=== PATIENT | female | born 1950 | race Caucasian/White ===

== ENCOUNTER 2018-02-27 08:00 | Outpatient (CLI) | payer MEDICARE, OTHER, SELFPAY ==
[2018-02-27 08:34] LABS: Hemoglobin A1C 5.6 % (4.5-6.2)
[2018-02-27 11:23] LABS: ALT 177 U/L (12-78); AST 121 U/L (15-37); Alkaline Phosphatase 75 U/L (46-116); Anion Gap 11.2 mmol/L (3-11); BUN 9 mg/dL (7-18); CO2 26.8 mmol/L (21.0-32.0); CREATININE 0.62 mg/dL (0.55-1.02); Calcium 9.4 mg/dL (8.5-10.1); Chloride 97 mmol/L (98-107); Cholesterol 202 mg/dL (50-200); Glucose 119 mg/dL (70-100); HDL Cholesterol 60 mg/dL (40-60); LDL CHOLESTEROL 132 mg/dL (<100); Magnesium 1.7 mg/dL (1.8-2.4); Potassium 3.5 mmol/L (3.5-5.1); Sodium 135 mmol/L (136-145); Total Protein 7.1 g/dL (6.4-8.2); Triglyceride 87 mg/dL (30-150); Vitamin B12 449 pg/mL (193-986)
== END 2018-02-27 08:20 ==
PROVIDERS: PCP Nurse Practitioner Family; Visit Provider Nurse Practitioner Family
DX: R73.01 Impaired fasting glucose (principal); E78.5 Hyperlipidemia, unspecified; K21.9 Gastro-esophageal reflux disease without esophagitis; I10 Essential (primary) hypertension
CPT/HCPCS: 36415; 80053; 80061; 83721; 82607; 83036; 83735

== ENCOUNTER 2018-05-29 11:22 | Outpatient (CLI) | payer MEDICARE, OTHER, SELFPAY ==
--- NOTE | 2018-05-29 11:15 | DI.RAD_ITS ---
SYMPTOMS/DIAGNOSIS: PNEUMONIA, J18.9, SHORTNESS OF BREATH, COUGH X 3 WEEKS CHEST X-RAY, PA AND LATERAL: Comparison is 10/02/07. The heart is normal in size. The lungs are clear. The mediastinal structures and pleura appear intact. IMPRESSION: Normal chest.
[2018-05-29 12:09] LABS: Abs Immature Grans 0.02 k/cumm (0.0-0.09); Absolute Basophil Count 0.06 k/cumm (0.0-0.2); Absolute Eosinophil Count 0.36 k/cumm (0.0-0.7); Absolute Lymphocyte Count 1.86 k/cumm (1.2-3.4); Absolute Monocyte Count 0.44 k/cumm (0.11-0.7); Absolute Neutrophil Count 3.13 k/cumm (1.2-6.7); Eosinophils % 6.1; HCT 42.2 % (36.0-46.0); HGB 14.4 g/dL (12.0-15.5); Immature Grans % 0.3; Lymphocytes % 31.7; Mean Corp. HGB Concentration 34.1 g/dL (32.0-36.0); Mean Corpuscular Hemoglobin 30.6 pg (27.0-33.0); Mean Corpuscular Volume 89.6 fL (80-95); Mean Platelet Volume 11.8 fL (8.0-11.0); Monocytes % 7.5; Neutrophils % 53.4; Platelet Count 190 x1000/uL (130-400); RBC 4.71 m/cumm (4.00-5.20); RBC Distribution Width 13.4 % (11.7-14.6); White Blood Cell Count 5.87 k/cumm (4.4-10.8)
[2018-05-29 12:30] LABS: INR 1.1 (0.9-1.1); Prothrombin Time 10.6 sec (9.3-11.0)
[2018-05-29 13:15] LABS: Magnesium 1.7 mg/dL (1.8-2.4)
[2018-05-29 13:24] LABS: ALT 112 U/L (12-78); AST 87 U/L (15-37); Albumin 3.7 g/dL (3.4-5.0); Alkaline Phosphatase 99 U/L (46-116); Anion Gap 6.9 mmol/L (3-11); BUN 9 mg/dL (7-18); Bilirubin, Total 0.7 mg/dL (0.2-1.0); CO2 32.1 mmol/L (21.0-32.0); CREATININE 0.64 mg/dL (0.55-1.02); Calcium 9.3 mg/dL (8.5-10.1); Chloride 98 mmol/L (98-107); Glucose 134 mg/dL (70-100); Potassium 3.9 mmol/L (3.5-5.1); Sodium 137 mmol/L (136-145); Total Protein 7.5 g/dL (6.4-8.2)
== END 2018-05-29 11:42 ==
PROVIDERS: PCP Nurse Practitioner Family; Visit Provider Family Medicine
DX: J18.1 Lobar pneumonia, unspecified organism (principal); R94.5 Abnormal results of liver function studies; E83.42 Hypomagnesemia; R06.02 Shortness of breath; R05 Cough
CPT/HCPCS: 80053; 71046; 83735; 85025; 85610

== ENCOUNTER 2018-07-02 11:06 | Outpatient (CLI) | payer MEDICARE, OTHER, SELFPAY ==
[2018-07-02 12:27] LABS: Ferritin 138 ng/mL (8-388); TSH (W/Ref FT4) 1.39 uIU/mL (0.358-3.74)
[2018-07-02 13:30] LABS: Iron 121 ug/dL (50-175); Total Iron Binding Capacity 329 ug/dL (250-450); Transferrin Sat 37 % (15-50)
[2018-07-03 09:37] LABS: HBs Antibody, Qual Positive; HBs Antibody, Quant >1000.0 mIU/mL; Hepatitis B Core Antibody Negative (NEGAT); Hepatitis B surface Ag Negative (NEGAT); Hepatitis C Ab w Rflx HCV PCR Negative (NEGAT)
== END 2018-07-02 11:26 ==
PROVIDERS: PCP Nurse Practitioner Family; Visit Provider Family Medicine
DX: R94.5 Abnormal results of liver function studies (principal); R53.83 Other fatigue
CPT/HCPCS: 36415; 86704; 86706; 86803; 87340; 82728; 83540; 83550; 84443

== ENCOUNTER 2021-02-03 11:36 | Outpatient (CLI) | payer MEDICARE, OTHER, SELFPAY ==
[2021-02-03 13:35] LABS: ALT 34 U/L (14-59); AST 20 U/L (15-37); Anion Gap 11.3 mmol/L (3-11); BUN 13 mg/dL (7-18); CO2 27.7 mmol/L (21.0-32.0); CREATININE 0.7 mg/dL (0.55-1.02); Calcium 9.4 mg/dL (8.5-10.1); Calculated LDL 144 mg/dL (<100); Chloride 100 mmol/L (98-107); Cholesterol 230 mg/dL (<200); Glucose 106 mg/dL (74-106); HDL Cholesterol 64 mg/dL (40-60); Potassium 3.9 mmol/L (3.5-5.1); Sodium 139 mmol/L (136-145); Triglyceride 112 mg/dL (<150)
== END 2021-02-03 11:37 | disposition home or self-care (01) ==
LOC: LOS 11:44
PROVIDERS: PCP Nurse Practitioner Family; Visit Provider Family Medicine
DX: E78.5 Hyperlipidemia, unspecified (principal); E87.1 Hypo-osmolality and hyponatremia; K76.0 Fatty (change of) liver, not elsewhere classified
CPT/HCPCS: 36415; 80048; 80061; 84450; 84460

== ENCOUNTER 2023-12-12 13:01 | Outpatient (REF) | payer MEDICARE, OTHER, SELFPAY ==
[2023-12-12 21:41] LABS: Abs Immature Grans 0.02 10^3/uL (0.0-0.06); Absolute Basophil Count 0.05 10^3/uL (0.0-0.2); Absolute Eosinophil Count 0.18 10^3/uL (0.0-0.7); Absolute Lymphocyte Count 1.55 10^3/uL (1.2-3.4); Absolute Monocyte Count 0.49 10^3/uL (0.1-0.8); Absolute Neutrophil Count 3.27 10^3/uL (1.2-6.7); Basophils % 0.9 %; Eosinophils % 3.2 %; HCT 40.4 % (36.0-46.0); HGB 13.5 g/dL (11.2-15.7); Immature Grans % 0.4 %; Lymphocytes % 27.9 %; MCH 29.2 pg (27.0-33.0); MCHC 33.4 % (32.0-36.0); MCV 87 fL (80-95); MPV 11.9 fL (8.0-11.0); Monocytes % 8.8 %; Neutrophils % 58.8 %; Platelet Count 217 10^3/uL (130-400); RBC 4.63 10^6/uL (3.93-5.22); RDW 13.3 % (11.7-14.6); RDW-SD 42.3 fL; WBC 5.56 10^3/uL (4.4-10.8)
[2023-12-12 22:00] LABS: ALT 34 U/L (14-59); AST 24 U/L (15-37); Albumin 4.1 g/dL (3.4-5.0); Alkaline Phosphatase 76 U/L (46-116); Anion Gap 10.6 mmol/L (3-11); BUN 11 mg/dL (7-18); Bilirubin, Total 0.65 mg/dL (0.2-1.0); CO2 25.4 mmol/L (21.0-32.0); CREATININE 0.7 mg/dL (0.55-1.02); Calcium 9.6 mg/dL (8.5-10.1); Chloride 99 mmol/L (98-107); Estimated GFR 90.14 (mL/min/1.73m2); Glucose 104 mg/dL (74-106); NT-proBNP 140 pg/mL (<300); Potassium 3.8 mmol/L (3.5-5.1); Sodium 135 mmol/L (136-145); Total Protein 7.2 g/dL (6.4-8.2)
== END 2023-12-12 13:02 | disposition home or self-care (01) ==
LOC: LBN 13:01
PROVIDERS: PCP Nurse Practitioner Family; Visit Provider Physician Assistant
DX: R23.3 Spontaneous ecchymoses (principal); R60.9 Edema, unspecified; I50.9 Heart failure, unspecified; R21 Rash and other nonspecific skin eruption
CPT/HCPCS: 80053; 83880; 85025

== ENCOUNTER 2024-02-28 12:56 | Outpatient (CLI) | payer MEDICARE, OTHER, SELFPAY ==
[2024-02-28 13:09] LABS: Calculated LDL 133 mg/dL (<100); Cholesterol 228 mg/dL (<200); HDL Cholesterol 71 mg/dL (40-60); Triglyceride 120 mg/dL (<150)
== END 2024-02-28 12:57 | disposition home or self-care (01) ==
PROVIDERS: PCP Nurse Practitioner Family; Visit Provider Nurse Practitioner Family
DX: Z13.6 Encounter for screening for cardiovascular disorders (principal); F43.21 Adjustment disorder with depressed mood; I10 Essential (primary) hypertension; E78.5 Hyperlipidemia, unspecified; K21.9 Gastro-esophageal reflux disease without esophagitis
CPT/HCPCS: 36415; 80061

== ENCOUNTER 2024-03-25 19:28 | Outpatient (REF) | payer MEDICARE, OTHER, SELFPAY | END 2024-03-25 19:29 | disposition home or self-care (01) | LOC: LBN 19:28 | PROVIDERS: PCP Nurse Practitioner Family; Visit Provider Physician Assistant | DX: N76.0 Acute vaginitis (principal) | CPT/HCPCS: 87480; 87510; 87660 ==

== ENCOUNTER 2024-08-27 01:06 | Outpatient (CLI) | payer MEDICARE, OTHER, SELFPAY ==
--- NOTE | 2024-08-27 13:15 | DI.US_ITS ---
APPROVED REPORT EXAM: Comprehensive 2D, Doppler, and color-flow Echocardiogram Patient Location: Out-Patient Lens Marker: Nely Merritt RDCS (AE) Indications: Bilateral pedal edema Other Information Study Quality: Good Conclusion Normal left ventricular wall thickness and chamber size. Ejection fraction is 60%. Wall motion is n ormal Normal right ventricular size and function Mildly enlarged left atrium. Normal right atrial size Aortic valve is mildly sclerotic and trileaflet with mild regurgitation Normal mitral valve, mild regurgitation Normal tricuspid valve, mild regurgitation. Estimated right ventricular systolic pressure is 28 mmHg Wall motion Left Ventricle The left ventricle is normal size. The left ventricular systolic function is normal. The left ventric ular ejection fraction is within the normal range. There is normal left ventricular wall thickness. T here is normal LV segmental wall motion. There is no ventricular septal defect visualized. LVEF is 60 %. Right Ventricle The right ventricle is normal size. The right ventricular systolic function is normal. Atria Left atrium is mildly dilated. The right atrium size is normal. The interatrial septum is intact with no evidence for an atrial septal defect. Aortic Valve The aortic valve is mildly sclerotic Aortic valve is trileaflet. There is no aortic valvular stenosis . Mild aortic regurgitation. Mitral Valve The mitral valve is normal in structure. No evidence of mitral valve stenosis. Mild mitral regurgitat ion. Tricuspid Valve The tricuspid valve is normal in structure. There is no tricuspid valve stenosis. Mild tricuspid regu rgitation. The RVSP is 28.1_ mmHg. Pulmonic Valve The pulmonary valve is normal in structure. There is no pulmonic valvular stenosis. Trace pulmonic re gurgitation. Great Vessels The aortic root is normal in size. The ascending aorta is normal in size. Aortic arch is normal in ca liber. IVC is normal in size and collapses >50% with inspiration. Pericardium There is no pericardial effusion. 2D Dimensions IVSD d PLAX 1.03 cm F: 0.6-1.0 Ao Root d 3.17 cm F: 2.7 - 3.3 LVPW d PLAX 1.00 cm F: 0.6 - 1.0 Ao Asc Diam d 3.53 cm F: 2.3 - 3.1 LVID d PLAX 4.70 cm F: 3.8 - 5.2 LVDs 3.20 cm F: 2.2 - 3.5 LV EF Teichholz 59.7 % FS 31.72 % LV EDV (Teich) 100.2 mL LV ESV (Teich) 40.3 mL M-Mode TAPSE 2.60 cm (M/F) >1.7 Auto EF LV EDV A4C 91.6 mL LV EDV A2C 98.4 mL LV EDV BP 95.5 mL LV ESV A4C 37.7 mL LV ESV A2C 41.6 mL LV ESV BP 39.3 mL LVEF(%) A4C 58.8 % LVEF(%) A2C 57.7 % LVEF(%) BP 58.9 % LV SV A4C 53.9 ml LV SV A2C 56.8 ml LV SV BP 56.2 ml LV CO A4C 3.4 L/min LV CO A2C 3.4 L/min LV CO BP 3.4 L/min HR A4C 63.50 BPM HR A2C 59.41 BPM LV EDV Index (BP) LA Volume LA Length A4C 5.6 cm LA Length A2C 5.3 cm LA Area A4C s 24.40 cm2 LA Area A2C s 18.98 cm2 LA Vol A4C A-L 89.43 mL LA Vol A2C A-L 57.27 mL LA Vol Biplane A-L 73.6 mL LA Vol/BSA A4C A-L LA Vol/BSA A2C A-L LA Vol/BSA BP A-L 41.4 mL/m2 LA Vol A4C MOD 84.6 mL LA Vol A2C MOD 52.5 mL LA Vol BP MOD 68.4 mL LV Diastology MV E' medial 0.052 (>0.07 m/s) MV E Vmax 0.74 (0.4-1.3 m/s) MV E/E' MED 14.09 (<14) MV A Vmax 0.75 (0.4-1.3 m/s) MV E' lateral 0.071 (>0.1 m/s) E/A Ratio 1.0 MV E/E' LAT 10.30 (<14) MV E' Average 0.062 m/s MV E/E'(average) 11.90 Aortic Valve AoV Vmax 1.55 m/s LVOT Vmax 1.06 m/s AoV Peak Grad 37.2 mmHg LVOT Peak Grad 4.5 mmHg AoV Area (Vmax) 2.09 cm2 LVOT VTI 0.280 m AoV VTI 0.405 m LVOT Mean Grad 2.4 mmHg AoV Mean Nithin. 1.09 m/s LVOT SV 85.83 mL AoV Mean Grad 5.4 mmHg LVOT Diam s 1.95 cm AoV Area (VTI) 2.12 cm2 AV Regurg Peak Gr. 9.66 mmHg Velocity Ratio 0.68 AR Decel Vance 2.0m/sec2 AR DT 2060 msec AR PHT 597 msec AR Vmax 4.02 m/s Mitral Valve MV DT 195 (160-240 msec) MV Vmax TIPS 0.74 m/s MV Mean Grad 1.2 (<2mmHg) MV VTI 0.314 m Pulmonary Valve PV Vmax 0.75 (0.5-1.5 m/s) RVOT Vmax 0.54 m/s PV Peak Grad 2.2 mmHg RVOT Peak Gr. 1.2 mmHg PV Mean Nithin 0.56 m/s RVOT VTI 0.137 m PV Mean Grad 1.4 mmHg RVOT Mean Gr. 0.7 mmHg Tricuspid Valve RA Pressure 3.00 mmHg TR Vmax 2.50 m/s TV S' 0.18 m/s TR Peak Grad 25.0 mmHg RVSP (TR) 28.1 mmHg
== END 2024-08-27 01:26 ==
LOC: DI 01:07
PROVIDERS: PCP Nurse Practitioner Family; Visit Provider Internal Medicine Cardiovascular Disease
DX: R60.0 Localized edema (principal); I35.0 Nonrheumatic aortic (valve) stenosis
CPT/HCPCS: 93306

== ENCOUNTER 2024-10-22 02:46 | Outpatient (CLI) | payer MEDICARE, OTHER, SELFPAY ==
--- NOTE | 2024-10-22 08:00 | DI.MRI_ITS ---
Exam(s) MR LOWER JOINT LT WO EXAM: MR LOWER JOINT LT WO CLINICAL HISTORY: Failing PT/worsening pain, LT KNEE INJURY S89.92XA. TECHNIQUE: Multiplanar multisequence MRI was performed. COMPARISON: CR XR KNEE COMPLETE MIN 4V LT from 08/15/2024 CR XR KNEE 1 OR 2V BILAT-M2 from 08/22/2024 FINDINGS: BONES: There is marrow edema seen in the medial tibial plateau without evidence of a fracture. JOINTS: There is near complete loss of the articular cartilage overlying the medial femoral condyle. There is marked thinning of the articular cartilage overlying the medial tibial plateau. There is also thinning of the articular cartilage overlying the patella. There is a moderate-sized joint effusion. There is a multi cystic collection seen inferior to the patella within the infrapatellar fat pad. TENDONS: Extensor mechanism: Unremarkable. Medial retinaculum: Unremarkable. Lateral retinaculum: Unremarkable. Popliteus: Unremarkable. MUSCLES: Unremarkable. MENISCI: There is signal seen along the free edge of the posterior horn of the medial meniscus suspicious for tear versus degeneration. The lateral meniscus is unremarkable. SOFT TISSUES: Unremarkable. LIGAMENTS: Anterior Cruciate: Unremarkable. Posterior Cruciate: Unremarkable. Medial Collateral:Unremarkable. Lateral Collateral: Unremarkable. OTHER: IMPRESSION: 1. Abnormal signal seen along the free edge of the posterior of the medial meniscus which may represent a tear versus degeneration. 2. There is no evidence of a cruciate or collateral ligament tear. 3. Marked arthrosis of the knee, particularly the medial femoral tibial joint. 4. Multi cystic collection inferior to the knee in the infrapatellar fat. Differential considerations include synovial cysts, bursitis or fat pad cysts. 5. No evidence of a fracture. DATA REPOSITORY:
== END 2024-10-22 03:06 ==
PROVIDERS: PCP Nurse Practitioner Family; Visit Provider Nurse Practitioner Family
DX: S89.92XA Unspecified injury of left lower leg, initial encounter (principal); X58.XXXA Exposure to other specified factors, initial encounter; M17.12 Unilateral primary osteoarthritis, left knee
CPT/HCPCS: 73721

== ENCOUNTER → 2024-12-19 13:06 | Outpatient (BNVA) | payer MEDICARE, OTHER, SELFPAY | PROVIDERS: PCP Nurse Practitioner Family; Referring Provider Physical Therapist; Visit Provider Student in an Organized Health Care Education/Training Program | DX: S83.242A Other tear of medial meniscus, current injury, left knee, initial encounter (principal); M17.12 Unilateral primary osteoarthritis, left knee; X58.XXXA Exposure to other specified factors, initial encounter | CPT/HCPCS: 99203 ==

== ENCOUNTER 2025-01-08 03:24 | Outpatient (CLI) | payer MEDICARE, OTHER, SELFPAY ==
--- NOTE | 2025-01-08 05:45 | DI.CT_ITS ---
Exam(s) CT THORACIC SPINE WO EXAM: CT THORACIC SPINE WO CLINICAL HISTORY: Compression fracture,S22.000A. TECHNIQUE: Imaging Protocol: Axial computed tomography images with coronal and sagittal reformatted images were created and reviewed. CONTRAST MATERIAL: Noncontrast COMPARISON: CR XR CHEST 2V PA LATERAL from 05/29/2018 CR XR T SPINE AP/LAT/SWIMMERS from 01/02/2025 FINDINGS: Bones: There is slight compression of the superior endplate of T7. There is slight compression of the inferior endplate of T9. There is mild moderate compression of the T11 vertebral body. The T12 vertebral body shows mild compression of the superior endplate. Acute fracture lines are visible at T7 and T9. There are degenerative changes of the endplates at T10-11 and T11-12, as well as T12-L1. No definite acute fracture lines are seen at these levels. No posterior element fractures. No retropulsion at any level.. The alignment of the spine is normal including the cervicothoracic junction. Soft tissues: No acute pulmonary findings. The thoracic aorta shows calcification. No large disk herniations are identified. IMPRESSION: Mild compression fractures of T7 and T9 with acute fracture lines visible. Moderate compression fracture of T11 and mild compression fracture of T12. These fractures and do not show definite acute fracture lines and of indeterminate age. They new since 2019. RADIATION DOSE DELIVERED: 845.6mGy.cm Total DLP DATA REPOSITORY: All CT scans at this facility are submitted to the National Radiology Data Registry (NRDR) Dose Index Registry (DIR) with the [employer] (A[employer]). RADIATION OPTIMIZATION: All CT scans at this facility use at least one of these dose optimization techniques: automated exposure control; mA and/or kV adjustment per patient size (includes targeted exams where dose is matched to clinical indication); or iterative reconstruction.
== END 2025-01-08 03:44 ==
PROVIDERS: PCP Nurse Practitioner Family; Visit Provider Nurse Practitioner Family
DX: S22.060A Wedge compression fracture of T7-T8 vertebra, initial encounter for closed fracture (principal); X58.XXXA Exposure to other specified factors, initial encounter
CPT/HCPCS: 72128

== ENCOUNTER → 2025-02-06 04:00 | Outpatient (CLI) | payer MEDICARE, OTHER, SELFPAY ==
--- NOTE | 2025-02-06 08:15 | DI.DEXA_ITS ---
Exam(s) XR DEXA BONE DENSITY W/WO JONNA EXAM: XR DEXA BONE DENSITY W/WO JONNA CLINICAL HISTORY: Bone density, menopausal disorder, N95.9 TECHNIQUE: Routine DEXA evaluation of the lumbar spine, hip, or forearm. COMPARISON: Prior DEXA scan of September 2008 FINDINGS: Performed on a [employer] unit. Lateral image: No compression fracture evident. Lumbar Spine total T-score: -0.7 which is within normal range. The reading in 2008 was -0.5 which was also normal range Hip total T-score:-1.3 which is osteopenia range. Prior reading in 2008 was - 0.2 which was normal range at that time. Independent reading at the level of the femoral neck yields T-score of -2.1 which is osteopenia range. The prior 2008 reading at this level is not available Forearm total T-score: -2.8 which is osteoporosis range. IMPRESSION: Bone mineral density measures in the normal range for lumbosacral spine. Bone mineral density at the level the hip is osteopenia range. Fracture risk at the hip is moderate Bone mineral density at the level of the wrist-forearm is in the osteoporosis range. Fracture risk at this level is high. Note: Any spine fracture indicates 5x risk for subsequent spine fracture and 2x risk for subsequent hip fracture. World Health Organization criteria for BMD interpretation classify patients: Normal...... T- Score at or above -1.0 Osteopenic... T- Score between -1.0 and -2.5 Osteoporosis... T-Score at or below -2.5
== END ==
LOC: DI 04:01
PROVIDERS: PCP Nurse Practitioner Family; Visit Provider Nurse Practitioner Family
DX: M85.89 Other specified disorders of bone density and structure, multiple sites (principal); N95.9 Unspecified menopausal and perimenopausal disorder
CPT/HCPCS: 77080

== ENCOUNTER 2025-02-28 13:52 | Outpatient (CLI) | payer MEDICARE, OTHER, SELFPAY ==
[2025-02-28 15:14] LABS: Anion Gap 6.8 mmol/L (3-11); BUN 12 mg/dL (9-23); CO2 29.2 mmol/L (20.0-31.0); Calcium 9.5 mg/dL (8.3-10.6); Chloride 102 mmol/L (98-107); Cholesterol 201 mg/dL (<200); Glucose 87 mg/dL (74-106); HDL Cholesterol 61 mg/dL (>40); Potassium 4.0 mmol/L (3.5-5.1); Sodium 138 mmol/L (136-145)
== END 2025-02-28 13:53 | disposition home or self-care (01) ==
LOC: LBO 13:54
PROVIDERS: PCP Nurse Practitioner Family; Visit Provider Nurse Practitioner Family
DX: Z13.1 Encounter for screening for diabetes mellitus (principal); Z13.6 Encounter for screening for cardiovascular disorders
CPT/HCPCS: 36415; 80048; 80061